=== PATIENT | female | born 1965 | race Asian ===

== ENCOUNTER 2017-02-25 15:34 | Emergency (ER) | payer OTHER ==
[~2017-02-25] VITALS: Ht 160 cm; Wt 54.4 kg
[2017-02-25 15:40] VITALS: BP 112/66
--- NOTE | 2017-02-25 16:08 | Emergency Room Report ---
History of Present Illness General Chief Complaint: General Complaint Source: Patient Present Illness HPI [id number] BIBEMS from clinic after she was given IM versed for suspected seizure Patient alleges "whole body shaking" and "jumping out of my body" but was aware of the event Occurred after taking [place] medication for "sleeping." She had 1x episode of nausea/vomiting prior to episode as well Currently asymptomatic Denies chest pain, SOB, abd pain, headache, fever/chills Denies PMHx or history of seizures, syncope Allergies: Coded Allergies: No Known Allergies (Unverified , 02/25/17) Patient History Past Medical History: none Past Surgical History: none Pertinent Family History: none Now: No Immunizations: UTD Reviewed Nursing Documentation: PMH: Agreed, PSxH: Agreed Nursing Documentation-PMH Past Medical History: No Stated History Review of Systems All Other Systems: negative except mentioned in HPI Physical Exam Vital Signs Date Time Temp Pulse Resp B/P (MAP) Pulse Ox O2 Delivery O2 Flow Rate FiO2 02/25/17 15:29 97.3 67 1 112/66 98 Room Air Sp02 EP Interpretation: reviewed, normal General Appearance: normal inspection, well appearing, no apparent distress, alert, GCS 15, non-toxic, other - Not post-ictal or sedated Head: normocephalic, atraumatic Eyes: bilateral eye PERRL, bilateral eye EOMI ENT: normal ENT inspection, hearing grossly normal, normal voice Neck: normal inspection, full range of motion, supple, no bony tend Respiratory: normal inspection, lungs clear, normal breath sounds, no respiratory distress, no retraction, no wheezing Cardiovascular #1: regular rate, rhythm, no edema Gastrointestinal: normal inspection, normal bowel sounds, non tender, soft, no guarding, no hernia Genitourinary: no CVA tenderness Musculoskeletal: normal inspection, back normal, normal range of motion, Karson' s Sign negative Neurologic: normal inspection, alert, oriented x3, responsive, ultrasound coordinator III-XII nml as tested, motor strength/tone normal, speech normal Psychiatric: normal inspection, judgement/insight normal, mood/affect normal Skin: normal inspection, normal color, no rash Lymphatic: normal inspection Medical Decision Making Diagnostic Impression: Primary Impression: Muscle spasm Additional Impression: Hyperglycemia ER Course Unlikely seizure as was not post-ictal Unlikely syncope as no LOC - patient remembers whole event Was not post-ictal so not sure why outside clinic gave versed ECG here NSR. No ischemia No leuks, H&h stable, no metabolic derangement that could cause spasm Elevated glucose. patient states both parents have DM. Ate a lot of candy/ sugar earlier - will followup with PMD. Was given copy of CMP ?side effect from [place] medication No additional episodes observed in ED DC home with Reassured patient EKG Diagnostic Results Rate: normal Rhythm: NSR ST Segments: no acute changes ASA given to the pt in ED: No Rhythm Strip Diag. Results EP Interpretation: yes Rate: 65 Rhythm: NSR, no PVC's Last Vital Signs Date Time Temp Pulse Resp B/P (MAP) Pulse Ox O2 Delivery O2 Flow Rate FiO2 02/25/17 15:29 97.3 67 1 112/66 98 Room Air Status: improved Disposition: HOME, SELF-CARE YAO LUEVANO M.D. Feb 25, 2017 16:07
[2017-02-25 16:36] LABS: MEAN CORPUSCULAR HEMOGLOBIN 33.1 PG (27.0-31.0); MEAN CORPUSCULAR HGB CONC 34.1 G/DL (32.0-36.0); MEAN CORPUSCULAR VOLUME 97 FL (80-99); MEAN PLATELET VOLUME 6.7 FL (6.5-10.1); PLATELET COUNT 187 K/UL (150-450); WHITE BLOOD COUNT 9.6 K/UL (4.8-10.8)
--- NOTE | 2017-02-25 16:41 | Diagnostic Imaging Report ---
Indication: Chest pain Technique: One view of the chest Comparison: none Findings: Lungs and pleural spaces are clear. Heart size is normal. There are bilateral basilar nipple shadows Impression: No acute process
[2017-02-25 16:51] LABS: ALANINE AMINOTRANSFERASE 17 U/L (3-33); ASPARTATE AMINO TRANSFERASE 18 U/L (5-40); CALCIUM 8.9 mg/dL (8.6-10.2); CARBON DIOXIDE 30 mEQ/L (20-30); CREATININE 0.9 mg/dL (0.5-0.9); GLOMERULAR FILTRATION RATE > 60 mL/min (>60); TOTAL PROTEIN 7.2 g/dL (6.6-8.7); TROPONIN I < 0.30 ng/mL (<=0.30)
[2017-02-25 16:52] LABS: ALBUMIN/GLOBULIN RATIO 1.8 (1.0-2.7); ANION GAP 10 (5-15); CHLORIDE 105 mEQ/L (98-107); HEMOLYSIS 1; POTASSIUM 3.9 mEQ/L (3.4-4.9); SODIUM 145 mEQ/L (135-145)
[2017-02-25 17:02] LABS: CKMB 1.8 ng/mL (< 3.8)
[2017-02-25 17:17] VITALS: BP 112/66
[2017-02-25 17:39] LABS: BAND NEUTROPHILS % (MANUAL) 0 % (0-8); BASOPHILS % (MANUAL) 0 % (0-2); EOSINOPHILS % (MANUAL) 1 % (0-3); LYMPHOCYTES % (MANUAL) 8 % (20-45); NEUTROPHILS % (MANUAL) 87 % (45-75); PLATELET ESTIMATE ADEQUATE; PLATELET MORPHOLOGY NORMAL; TOTAL CELLS COUNTED 100
== END 2017-02-25 17:20 | disposition home or self-care (01) ==
LOC: EDBD 15:34 → EMR 16:03
DX: M62.838 Other muscle spasm (principal); R73.9 Hyperglycemia, unspecified
CPT/HCPCS: 36415; 71010; 80053; 82550; 82553; 84484; 85007; 85025; 93005; 99283